=== PATIENT | female | born 1960 | race American Indian/Alaskan Native ===

== ENCOUNTER 2017-08-22 11:11 | Day surgery (SDC) | payer BC ==
[2017-08-22 13:19] VITALS: BP 138/77
--- NOTE | 2017-08-22 15:00 | Ultrasound Report ---
Thyroid ultrasound/biopsy: Enlarging right thyroid nodule. Prior biopsy 2010. The right lobe measures 2.4 x 3.1 x 6.4 cm. In the superior thyroid lobe there is a dominant circumscribed hypoechogenic mass having a maximum dimension of 2.6 cm. Inferior to this there is a circumscribed complex made up of several mixed echo masses. The left thyroid lobe measures 2.3 x 3.3 x 7.5 cm. Multiple mixed echo circumscribed masses are present in the superior and mid thyroid lobe. Inferiorly there is a heterogeneous enlargement of the lobe with no discrete mass. There is a iso-echogenic mass to the right of midline in the isthmus. All of the masses demonstrated internal/peripheral flow with color imaging. The dominant right lobe mass measured 2.4 cm in 2011 with similar characteristics. The right neck was cleansed and 1% lidocaine used for local anesthesia. The dominant mass was sampled using a 25-gauge needle with aspiration followed by a biopsy with a Rotex needle. There were no patient complications. The attending pathologist indicated that adequate sampling had been obtained. The patient was discharged to [facility]. Impression: The overall findings are consistent with goiter.
--- NOTE | 2017-08-22 15:09 | History and Physical Report ---
History of Present Illness Date of examination: 08/22/17 Chief complaint: enlarging thyroid nodule History of present illness: chronic Medications and Allergies Allergies Allergy/AdvReac Type Severity Reaction Status Date / Time No Known Allergies Allergy Verified 08/22/17 11:27 Exam Vital Signs Temp Pulse Resp Pulse Ox 98.4 F 65 16 97 08/22/17 11:37 08/22/17 11:37 08/22/17 11:37 08/22/17 11:37
--- NOTE | 2017-08-22 15:10 | Procedure Note ---
Date of procedure: 08/22/17 Pre-op diagnosis: rt. thyroid nodule Post-op diagnosis: same Procedure: asp/bx Findings: solid tissue Anesthesia: local Surgeon: LUKE PANDYA Estimated blood loss: none Pathology: list (thyroid) Specimen disposition: to lab Condition: stable Disposition: observation
== END 2017-08-22 14:00 | disposition home or self-care (01) ==
LOC: CATHLABREC 11:11 → EDSTATUS 12:00 → CATHLABREC 14:00
DX: E04.2 Nontoxic multinodular goiter (principal)
CPT/HCPCS: 60100; 76942; 88112; 88172; 88173; 88305